=== PATIENT | male | born 1965 | race Hispanic/Latino ===

== ENCOUNTER 2023-03-21 13:39 | Inpatient (IN) | payer OTHER ==
[~2023-03-21] VITALS: Ht 160 cm; Wt 78.5 kg
[2023-03-21] VITALS (14 sets, daily range): BP systolic 110–138; BP diastolic 58–89
[2023-03-21] MEDS ORDERED: FENTANYL CITRATE PF 50 MCG/1 ML 2ML VIAL ONE (13:45)
[2023-03-21] MEDS ORDERED: LIDOCAINE HCL 400MG/20ML VIAL ONE (13:45)
[2023-03-21] MEDS ORDERED: IOHEXOL-350 75 ML VIAL IV ONE ×2 (13:45→14:26)
[2023-03-21] MEDS ORDERED: MIDAZOLAM HCL 1 MG/ML 2ML VIAL ONE (13:45)
[2023-03-21] MEDS ORDERED: VERAPAMIL HCL 2.5 MG/ML VIAL ONE (13:46)
[2023-03-21] MEDS ORDERED: NITROGLYCERIN 50MG VIAL ONE (13:46)
[2023-03-21] MEDS ORDERED: HEPARIN 10,000 UNIT/10ML (1,000 UNIT/ML) VIAL ONE (13:46)
[2023-03-21] MEDS ORDERED: TICAGRELOR 90 MG TABLET ONE ×2 (13:47→19:56)
[2023-03-21] MEDS ORDERED: ATROPINE 1MG SYG IVP ONE (13:52)
[2023-03-21] MEDS ORDERED: DOPAMINE HCL 400 MG/D5%-WATER 0 ML IV ONE (13:52)
[2023-03-21] MEDS: TICAGRELOR 90 MG TABLET PO SCH ×3 (13:55→20:52)
[2023-03-21 13:58] LABS: BASOPHILS % (AUTO) 0.5 % (0.0-5.0); EOSINOPHILS % (AUTO) 0.2 % (0.0-8.0); HEMATOCRIT 41.4 % (42-54); LYMPHOCYTES % (AUTO) 6.2 % (21.0-51.0); MEAN CORPUSCULAR HEMOGLOBIN 30.2 pg (27.0-33.0); MEAN CORPUSCULAR HGB CONC 34.5 g/dL (32.0-36.0); MEAN CORPUSCULAR VOLUME 87.5 fL (79-99); MONOCYTES % (AUTO) 3.4 % (3.0-13.0); NEUTROPHILS % (AUTO) 89.2 % (40.0-77.0); PLATELET COUNT (AUTO) 233 K/uL (130-400); RED BLOOD CELL COUNT(AUTO) 4.73 MIL/uL (4.50-6.20); RED CELL DISTRIBUTION WIDTH 13.1 % (11.0-15.5)
[2023-03-21] MEDS ORDERED: HEPARIN 5,000 UNIT VIAL IV ONE (14:00)
[2023-03-21] MEDS ORDERED: HEPARIN 25,000 UNITS/250ML D5W 250 ML IV PRN (14:00)
[2023-03-21 14:03] LABS: CREATININE 1.3 mg/dL (0.5-1.5); POTASSIUM 5.2 mmol/L (3.5-5.1)
[2023-03-21 14:10] LABS: ALBUMIN 4.6 g/dL (3.5-5.0); TOTAL PROTEIN, SERUM 8.1 g/dL (6.0-8.3)
[2023-03-21] MEDS ORDERED: EPTIFIBATIDE 2 MG/ML 10 ML VIAL IVP ONE (14:45)
[2023-03-21] MEDS ORDERED: IOHEXOL-350 50ML VIAL IV ONE (14:55)
[2023-03-21] MEDS ORDERED: NITROGLYCERIN 50MG/D5W 250ML 1 BOT ONE (15:05)
[2023-03-21] MEDS ORDERED: 0.9%NACL 1000ML 1,000 ML IV SCH (15:30)
[2023-03-21] MEDS ORDERED: NITROGLYCERIN 50MG/D5W 250ML 250 BOT IV SCH (15:30)
[2023-03-21] MEDS ORDERED: GLUCAGON 1MG KIT 1 MG ML IM PRN (15:30)
[2023-03-21] MEDS ORDERED: DEXTROSE 50%-WATER 50 ML DISP.SYRIN IV PRN (15:30)
[2023-03-21 17:29] LABS: INR 0.94 (0.85-1.15); PROTHROMBIN TIME 10.3 SEC (9.6-11.6)
[2023-03-21 17:30] LABS: PARTIAL THROMBOPLASTIN TIME 36.6 SEC (26.3-35.5)
[2023-03-21 17:45] LABS: HEMOGLOBIN A1C 5.9 % (4.0-6.0)
[2023-03-21] MEDS: ATORVASTATIN 40 MG TABLET PO SCH (20:51)
[2023-03-22] VITALS (24 sets, daily range): BP systolic 113–143; BP diastolic 66–88
[2023-03-22 04:39] LABS: HEMATOCRIT 39.6 % (42-54); MEAN CORPUSCULAR HEMOGLOBIN 30.2 pg (27.0-33.0); MEAN CORPUSCULAR HGB CONC 34.1 g/dL (32.0-36.0); MEAN CORPUSCULAR VOLUME 88.6 fL (79-99); RED BLOOD CELL COUNT(AUTO) 4.47 MIL/uL (4.50-6.20); RED CELL DISTRIBUTION WIDTH 13.2 % (11.0-15.5); WHITE BLOOD COUNT (AUTO) 13.9 K/uL (4.8-10.8)
[2023-03-22 04:44] LABS: HEMOGLOBIN A1C 5.8 % (4.0-6.0)
[2023-03-22 05:01] LABS: CREATININE 1.1 mg/dL (0.5-1.5); POTASSIUM 3.7 mmol/L (3.5-5.1)
[2023-03-22] MEDS ORDERED: KCL 20 MEQ ERTAB PO SCH (08:00)
[2023-03-22] MEDS ORDERED: MAGNESIUM 2GM PREMIX 50ML 50 ML IV PRN (08:00)
[2023-03-22] MEDS: ASPIRIN 81MG CHEW TAB PO SCH (08:33)
[2023-03-22] MEDS: TICAGRELOR 90 MG TABLET PO SCH ×2 (08:35→20:54)
[2023-03-22] MEDS: ATORVASTATIN 40 MG TABLET PO SCH (20:54)
[2023-03-22 21:39] LABS: APPEARANCE,URINE CLEAR (CLEAR); BILIRUBIN,URINE NEGATIVE (NEGATIVE); COLOR,URINE LIGHT-YELLOW (YELLOW); GLUCOSE, URINE (UA) NEGATIVE (NEGATIVE); KETONES,URINE NEGATIVE (NEGATIVE); LEUKOCYTE ESTERASE ,URINE NEGATIVE Leu/uL (NEGATIVE); NITRATE,URINE NEGATIVE (NEGATIVE); OCCULT BLOOD,URINE NEGATIVE (NEGATIVE); PH,URINE 6.5 (5.0-8.0); PROTEIN,URINE NEGATIVE (NEGATIVE); UROBILINOGEN,URINE 0.2 mg/dL (0.2-1.0)
[2023-03-22 21:42] LABS: MUCUS,URINE RARE LPF (None Seen); SQUAMOUS EPITHELIAL CELL,UR RARE /HPF (0-2); WBC,URINE 0-1 /HPF (0-1)
[2023-03-23] VITALS: BP 123/84
[2023-03-23 01:00] VITALS: BP 128/84
[2023-03-23 02:00] VITALS: BP 114/84
[2023-03-23 03:30] VITALS: BP 128/76
[2023-03-23 03:42] LABS: HEMATOCRIT 42.2 % (42-54); MEAN CORPUSCULAR HEMOGLOBIN 30.1 pg (27.0-33.0); MEAN CORPUSCULAR HGB CONC 34.1 g/dL (32.0-36.0); MEAN CORPUSCULAR VOLUME 88.3 fL (79-99); RED BLOOD CELL COUNT(AUTO) 4.78 MIL/uL (4.50-6.20); WHITE BLOOD COUNT (AUTO) 10.6 K/uL (4.8-10.8)
[2023-03-23 04:00] LABS: ALBUMIN 3.8 g/dL (3.5-5.0); CREATININE 1.2 mg/dL (0.5-1.5); POTASSIUM 3.8 mmol/L (3.5-5.1); TOTAL PROTEIN, SERUM 7.5 g/dL (6.0-8.3)
[2023-03-23 06:25] VITALS: BP 109/70
[2023-03-23] MEDS ORDERED: ATOR40TA69 PO (08:02)
[2023-03-23] MEDS ORDERED: ASPI-1005 PO (08:02)
[2023-03-23] MEDS ORDERED: METO25TA3 PO (08:02)
[2023-03-23] MEDS ORDERED: TICA90TA PO (08:02)
[2023-03-23] MEDS: ASPIRIN 81MG CHEW TAB PO SCH (08:39)
[2023-03-23] MEDS: TICAGRELOR 90 MG TABLET PO SCH (08:40)
[2023-03-23] MEDS ORDERED: METOPROLOL SUCCINATE 25 MG TAB.SR.24H PO SCH (09:00)
[2023-03-23 11:16] VITALS: BP 138/84
== END 2023-03-23 11:30 | disposition home or self-care (01) | DRG 247 ==
LOC: EDH 13:39 → EDHIP 13:40 → 2CH 16:10 → 2AH 03-23 03:04
PROVIDERS: ADMIT Internal Medicine; ATTEND Internal Medicine
PROC: 4A023N7 Measurement of Cardiac Sampling and Pressure, Left Heart, Percutaneous Approach (ICD-10-PCS; principal; 2023-03-21)
PROC: 027034Z Dilation of Coronary Artery, One Artery with Drug-eluting Intraluminal Device, Percutaneous Approach (ICD-10-PCS; 2023-03-21)
PROC: B2111ZZ Fluoroscopy of Multiple Coronary Arteries using Low Osmolar Contrast (ICD-10-PCS; 2023-03-21)
PROC: B2151ZZ Fluoroscopy of Left Heart using Low Osmolar Contrast (ICD-10-PCS; 2023-03-21)
DX: I21.19 ST elevation (STEMI) myocardial infarction involving other coronary artery of inferior wall (principal); I47.20 Ventricular tachycardia, unspecified; Z20.822 Contact with and (suspected) exposure to COVID-19; D72.829 Elevated white blood cell count, unspecified; E11.9 Type 2 diabetes mellitus without complications; E78.5 Hyperlipidemia, unspecified; E87.5 Hyperkalemia; I10 Essential (primary) hypertension; Z98.61 Coronary angioplasty status; Z87.891 Personal history of nicotine dependence; I25.2 Old myocardial infarction
CPT/HCPCS: 36415; 71045; 80048; 80053; 80061; 81001; 83036; 83605; 83735; 84145; 84443; 84484; 85025; 85027; 85610; 85730; 87635; 87804; 93005; 93306; 93356; 93458; 99156; 99157; 99291; C1769; C1887; C9606; C9803; G0378; J0461; J1265; J1327; J1644; J2250; J3010; J3475; J3490; Q9967